=== PATIENT | male | born 1990 | race Two or more races ===

== ENCOUNTER 2020-06-24 01:31 | Emergency (ER) | payer MEDICAID ==
[~2020-06-24] VITALS: Ht 165.1 cm; Wt 60.0 kg
[2020-06-24] MEDS ORDERED: LIDOCAINE-MPF 1%, 5ML ONE (01:56)
[2020-06-24] MEDS: PLEASE ENTER ALLERGIES MC SCH ×2 (02:00→03:10)
[2020-06-24] MEDS ORDERED: LIDOCAINE-MPF 1%, 5ML INFIL ONE (02:00)
[2020-06-24] MEDS ORDERED: NEOSPORIN OINT. PKT 1 PACKET ONE (02:17)
--- NOTE | 2020-06-24 02:19 | NUR ---
WOUND IRRIGATED. READY FOR SUTURING.
[2020-06-24 03:30] VITALS: BP 136/95
== END 2020-06-24 03:33 | disposition home or self-care (01) ==
LOC: ED 02:01
DX: S41.112A Laceration without foreign body of left upper arm, initial encounter (principal); F10.220 Alcohol dependence with intoxication, uncomplicated; W19.XXXA Unspecified fall, initial encounter; Y93.89 Activity, other specified; Y92.098 Other place in other non-institutional residence as the place of occurrence of the external cause; Y99.8 Other external cause status; Y90.0 Blood alcohol level of less than 20 mg/100 ml
CPT/HCPCS: 12034; 99284